=== PATIENT | male | born 1980 | race Two or more races ===

== ENCOUNTER 2020-04-09 15:48 | Emergency (ER) | payer MEDICAID, OTHER ==
[~2020-04-09] VITALS: Ht 180.3 cm; Wt 136.1 kg
[2020-04-09 16:00] VITALS: BP 131/92
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
[2020-04-09] MEDS ORDERED: Ketorolac 30mg Inj IM ONE (16:15)
[2020-04-09] MEDS ORDERED: Methocarbamol 750mg tab ORAL ONE (16:15)
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
[2020-04-09] MEDS ORDERED: IBU800 MG PO (17:31)
[2020-04-09] MEDS ORDERED: LIDODERM700 M1 TOPIC (17:31)
[2020-04-09] MEDS ORDERED: ROBAXIN-500MG ORAL (17:31)
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
[2020-04-09 18:00] VITALS: BP 127/78
--- NOTE | 2020-04-09 18:00 | NUR ---
ER DISCHARGE NOTE: Patient is cleared to be discharged per ERMD, Patient is awake, alert, oriented x 4. D/C instruction and prescription given to patient. Patient was able to verbalize understanding. ID band removed. Patient ambulated out with steady gait.
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
== END 2020-04-09 18:00 | disposition home or self-care (01) ==
LOC: EMR 16:00
DX: S13.4XXA Sprain of ligaments of cervical spine, initial encounter (principal); V43.52XA Car driver injured in collision with other type car in traffic accident, initial encounter; Y92.410 Unspecified street and highway as the place of occurrence of the external cause; I10 Essential (primary) hypertension; M25.512 Pain in left shoulder; M25.511 Pain in right shoulder
CPT/HCPCS: 70490; 72040; 72125; 96372; 99284; J1885; Q9967; 70498